=== PATIENT | female | born 1970 | race Two or more races ===

== ENCOUNTER 2024-11-06 22:12 | Emergency (ER) | payer OTHER ==
[~2024-11-06] VITALS: Ht 149.9 cm; Wt 68.3 kg
--- NOTE | 2024-11-07 00:01 | ED.PDOC ---
GI ASSESSMENT HPI Comments 54-year-old female came to ER due to abdominal pain. States she has been having abdominal pain for the past few hours, left-sided abdominal pain, 8/10 intensity, associated bouts of nausea and vomiting. Denies any change in bowel habits or fever. REVIEW OF SYSTEMS: General: No fever, no chills, or fatigue HEENT: No sore throat, no earache, no congestion, no neck pain. Cardiac: No chest pain. No palpitations. Lungs: No shortness of breath, no cough. GI: (+) nausea, (+) vomiting, no diarrhea, no constipation, (+) abdominal pain : No dysuria, frequency, or urgency. No hematuria. Musculoskeletal: No joint pain , no joint swelling, no extremity edema. Skin: No rash, no itching. Neuro: No headache, no dizziness, no weakness EXAM: General: Awake, alert and oriented. No acute distress. Skin: Skin in warm, dry and intact. Appropriate color for ethnicity. HEENT: The head is normocephalic and atraumatic. Conjunctivae are clear without exudates or hemorrhage. Sclera is non-icteric. EOM are intact. No signs of nystagmus. Eyelids are normal in appearance without swelling or lesions. Oral mucosa is pink and moist Neck: The neck is supple with normal range of motion. No JVD. Cardiac: Heart rate and rhythm are normal. No murmurs, gallops, or rubs are auscultated. Respiratory: No signs of respiratory distress. Lung sounds are clear in all lobes bilaterally without rales, rhonchi, or wheezes. Abdominal: Abdomen is soft, left flank, left upper quadrant tenderness without distention. Bowel sounds are present and normoactive in all four quadrants. Extremities: Upper and lower extremities are atraumatic in appearance without deformity or edema. Neurological: The patient is awake, alert and oriented to person, place, and time with normal speech. Speech is clear. There is no facial asymmetry. Normal gait Psychiatric: Appropriate mood and affect. 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 Was a procedure done?: No GI differential Dx Differential Diagnosis: Constipation, Diverticular disease, Gastritis/PUD, Gastroenteritis, Hernia, Pancreatitis, UTI, Urolithiasis X-Ray, Labs, Meds, VS Vital Signs Date Time Temp Pulse Resp B/P (MAP) Pulse Ox O2 Delivery O2 Flow Rate FiO2 11/07/24 01:33 97.8 64 16 169/73 (105) 99 97.8 11/06/24 22:12 97.9 82 18 156/77 99 97.9 Lab Test 11/07/24 00:20 11/06/24 23:22 Range/Units White Blood Count 12.2 H 4.4-10.8 10^3/uL Red Blood Count 5.19 4.0-5.20 10^6/uL Hemoglobin 14.5 12.2-16.2 g/dL Hematocrit 43.1 36.0-46.0 % Mean Corpuscular Volume 83.0 80.0-100.0 fL Mean Corpuscular Hemoglobin 27.9 L 28.0-32.0 pg Mean Corpuscular Hemoglobin Concent 33.6 32.0-36.0 g/dL Red Cell Distribution Width 13.2 11.8-14.3 % Platelet Count 317 140-450 10^3/uL Mean Platelet Volume 8.7 6.9-10.8 fL Neutrophils (%) (Auto) 37.0-80.0 % Lymphocytes (%) (Auto) 10.0-50.0 % Monocytes (%) (Auto) 0.0-12.0 % Basophils (%) (Auto) 0.0-2.0 % Neutrophils # (Auto) 1.6-8.6 10 ^3/uL Lymphocytes # (Auto) 0.4-5.4 10 ^3/uL Monocytes # (Auto) 0-1.3 10 ^3/uL Differential Total Cells Counted 100.0 100 Neutrophils % (Manual) 36 L 37.0-80.0 Band Neutrophils % (Manual) 0 Lymphocytes % (Manual) 41 10.0-50.0 Monocytes % (Manual) 5 0-12 Eosinophils % (Manual) 18 H 0-7 Basophils % (Manual) 0 0.0-2.0 Metamyelocytes % (manual) 0 Myelocytes % (Manual) 0 Promyelocytes % (Manual) 0 Blast Cells % (Manual) 0 Reactive Lymphocytes 0 Platelet Estimate Adequate Sodium Level 136 136-145 mmol/L Potassium Level 4.6 3.5-5.1 mmol/L Chloride Level 101 98-107 mmol/L Carbon Dioxide Level 27 20-31 mmol/L Anion Gap 8 5-15 Blood Urea Nitrogen 17 9-23 mg/dL Creatinine 1.30 H 0.550-1.02 mg/dL Glomerular Filtration Rate Calc 49 >90 mL/min BUN/Creatinine Ratio 13.1 10.0-20.0 Serum Glucose 353 H 74-106 mg/dL Calcium Level 9.7 8.7-10.4 mg/dL Urine Color Light-yellow Yellow Urine Clarity Clear Clear Urine pH 6.5 5.0-9.0 Urine Specific [place] 1.016 1.001-1.035 Urine Protein 2+ H Negative Urine Ketones Negative Negative Urine Blood Negative Negative /uL Urine Nitrite Negative Negative Urine Bilirubin Negative Negative Urine Urobilinogen Normal Negative mg/dL Urine Leukocyte Esterase Negative Negative /uL Urine RBC None seen 0 - 4 /hpf Urine Microscopic WBC 1 0-5 /HPF Urine Squamous Epithelial Cells None seen <5 /hpf Urine Bacteria None seen None Seen /hpf Urine Glucose 4+ H Normal mg/dL Current Medications Medications (Trade) Dose Ordered Sig/Josué Route Start Time Stop Time Status Last Admin Ketorolac Tromethamine (Toradol Injection) 30 mg ONCE ONCE IM 11/07/24 00:15 11/07/24 00:16 DC 11/07/24 01:06 Tramadol HCl (Ultram) 50 mg ONCE ONCE PO 11/07/24 00:15 11/07/24 00:16 DC 11/07/24 01:07 Acetaminophen (Tylenol Tablet) 650 mg ONCE ONCE PO 11/07/24 00:15 11/07/24 00:16 DC 11/07/24 01:05 Exam: CT CT AB PEL WO CON-NO ORAL OR IV History: Left flank pain Comparison Study: None Technique: Multidetector spiral CT of the abdomen was performed from lung bases to pubic symphysis. Imaging was performed without IV contrast. Axial, coronal and sagittal multiplanar reformats were obtained from the axial data set by the technologist. Radiation Dose : 1. Abdomen/Pelvis: CTDIvol 7.47 mGy, DLP 442.6 mGy*cm. Findings: Evaluation of solid organs is limited due to lack of intravenous contrast use. Lung Bases: No acute or significant lung base finding. Normal heart size. No pleural or pericardial effusion. Liver: The liver is normal in size. No focal lesions. Gallbladder and Biliary Tree: Unremarkable Spleen: Unremarkable Pancreas: The pancreas is grossly normal in appearance. Adrenal Glands: Unremarkable Kidneys: Kidneys are grossly normal without calculi or hydronephrosis. Bladder: Grossly unremarkable for degree of distention. Bowel: The stomach is grossly normal in appearance. Retained colorectal stool. Small bowel and colon are otherwise normal in caliber and distribution. The appendix is normal. Ascites: Absent Lymphadenopathy: No mesenteric, retroperitoneal or periportal lymphadenopathy. Abdominal Wall and Mesentery: Unremarkable. Vasculature: The visualized abdominal aorta is normal in size and caliber. Evaluation of abdominal and pelvic vessels is limited due to lack of intravenous contrast. Pelvic Organs: Unremarkable Musculoskeletal: No aggressive focal bony lesions, acute fractures or dis location. IMPRESSION: 1. No acute abdominal or pelvic findings. 2. Retained colorectal stool. Radiation optimization: All CT scans at this facility use at least one of these dose optimization techniques: automated exposure control mA and/or kV adju stment per patient size (includes targeted exams where dose is matched to clinical indication) or iterative reconstruction. Time of 1ST Reevaluation: 23:57 Reevaluation 1ST: Unchanged Patient Education/Counseling: Need For Follow Up Family Education/Counseling: No Family Present SEPSIS Sepsis Screen Date sepsis recognized/suspect: Nov 06, 2024 Time Sepsis recognized/suspect: 2211 Recent Procedure: No On Antibiotic Therapy: No Respiratory Rate >20: No Heart Rate >90: No Temp<36 C (96.8 F) or >38.3 C: No SBP <90 or MAP <65 mmHG: No New Acute Mental Status Change: No Is the patient on CPAP, BIPAP,: No Physician Orders Ct Ab Pel Wo Con-No Oral Or Iv (11/07/24 00:14) Vital Signs Date Time Temp Pulse Resp B/P (MAP) Pulse Ox O2 Delivery O2 Flow Rate FiO2 11/07/24 01:33 97.8 64 16 169/73 (105) 99 97.8 11/06/24 22:12 97.9 82 18 156/77 99 97.9 Laboratory Tests Test 11/07/24 00:20 White Blood Count 12.2 10^3/uL (4.4-10.8) H Medications Medications Dose Ordered Sig/Josué Route Start Time Stop Time Status Last Admin Dose Admin Acetaminophen 650 mg ONCE ONCE PO 11/07/24 00:15 11/07/24 00:16 DC 11/07/24 01:05 Ketorolac Tromethamine 30 mg ONCE ONCE IM 11/07/24 00:15 11/07/24 00:16 DC 11/07/24 01:06 Tramadol HCl 50 mg ONCE ONCE PO 11/07/24 00:15 11/07/24 00:16 DC 11/07/24 01:07 Departure 1 Departure Time of Disposition: 01:27 Impression: Primary Impression: Abdominal pain Additional Impressions: Constipation Hyperglycemia Disposition: 01 HOME / SELF CARE / HOMELESS Condition: Stable Additional Instructions: INSTRUCCIONES DE KIM DE Urgencias Instrucciones: Yancy atentamente todas las instrucciones proporcionadas en maru paquete. Hoy le diagnosticaron estreimiento, dolor abdominal y niveles altos de azcar en la carlos. Es muy importante que tome vincenzo medicamentos para la diabetes segn lo recetado. Empiece a joanie [employer] para el estreimiento y asegrese de beber michael agua Aunque le hayan dado el kim del Departamento de Emergencias, esto no significa que tenga un "certificado de buena riley". Hoy no se bosch realizado ningn diagnstico definitivo para vincenzo sntomas. Es posible que ests en proceso de desarrollar luc enfermedad grave. Es por eso que debe regresar al servicio de urgencias sin falta si presenta algn sntoma nuevo o que empeora (especialmente si vincenzo sntomas incluyen dolor en el pecho, dificultad para respirar, dolor abdominal, fiebre, dolor de bobbi, confusin, dificultad para angie o caminar). [place] es muy importante que consulte a un mdico de atencin primaria dentro de los prximos 3 a 5 rosales para realizar un seguimiento. Si no puede conseguir luc luli, regrese al servicio de urgencias para luc nueva evaluacin. Dolor abdominal: instrucciones de cuidado Imagen de los cuatro cuadrantes del abdomen. Descripcin general El dolor abdominal tiene muchas causas posibles. Algunas no son graves y mejoran por s solas en unos rosales. Otras requieren ms pruebas y tratamiento. Si el dolor contina o empeora, es necesario volver a examinarlo y es posible que necesite ms pruebas para averiguar qu es lo que est mal. Es posible que n ecesite luc ciruga para corregir el problema. No ignore los sntomas nuevos, asmita fiebre, nuseas y vmitos, problemas para or inar, dolor que empeora y mareos. Estos pueden ser signos de un problema ms grave. Si no mejora, es posible que necesite ms pruebas o tratamiento. El mdico lo bosch examinado cuidadosamente, katalina pueden surgir problemas ms adelante. Si nota algn problema o sntomas nuevos, busque tratamiento mdico de inmediato . El seguimiento mdico es luc parte fundamental de pimentel tratamiento y pimentel seguridad. Asegrese de programar y acudir a todas las citas, y llame a pimentel mdico si tiene problemas. Kurpa es luc buena idea saber los resultados de vincenzo pruebas y llevar luc lista de los medicamentos que juvencio. Electromechanical Equipment Assembler puedes cuidarte en casa? Descansa hasta que te sientas mejor. Para prevenir la deshidratacin, deysi abundante lquido. Elija agua y otros lquidos trudy hasta que se sienta mejor. Si tiene luc enfermedad renal, cardaca o heptica y debe limitar los lquidos, consulte con pimentel mdico antes de aumentar la cantidad de lquidos que silvia. Cuando sientas ganas de comer, empieza con pequeas cantidades. No tomes alcoho l, cafena ni alimentos picantes, calientes o con alto contenido de grasa bandar shanna o dos rosales. Evite los medicamentos antiinflamatorios asmita la aspirina, el ibuprofeno (Advil, Motrin) y el naproxeno (Aleve). Pueden causar malestar estomacal. Hable con pimentel mdico si juvencio aspirina a diario por otro problema de riley. Cundo debes pedir ayuda? Llame al 911 en cualquier momento en que crea que puede necesitar atencin de emergencia. Por ejemplo, llame si: Te desmayaste (perdiste el conocimiento). Tiene heces de color marrn o con michael carlos. Vomitas carlos o lo que parecen posos de caf. Tienes un dolor intenso en el vientre. Llame a pimentel mdico ahora o busque atencin mdica inmediata si: El dolor empeora, especialmente si se concentra en luc yumiko determinada del abdomen. Tiene fiebre nueva o ms kim. Las heces son negras y parecen alquitrn, o tienen vetas de carlos. Tienes sangrado vaginal inesperado. Tiene sntomas de luc infeccin del tracto urinario. Estos pueden incluir: Dolor al orinar. Orinar con ms frecuencia de lo habitual. Carlos en la orina. Se siente mareado o aturdido, o siente que se puede desmayar. Preste atencin a los cambios en pimentel riley y asegrese de comunicarse con pimentel mdico si: No ests mejorando asmita esperabas. Crditos para el dolor abdominal: instrucciones de cuidado Actualizado al: 2023 Autor: Personal de [facility], [facility] Diabetes: Electromechanical Equipment Assembler prevenir emergencias por niveles altos de azcar en carlos El nivel alto de azcar en carlos se produce cuando el nivel de azcar (glucosa) en la carlos supera el rango objetivo. Puede ocurrir si: Olvida luc dosis de pimentel medicamento para la diabetes tipo 2 o luc dosis requerida de insulina. Comes ms de lo esperado. Haces menos ejercicio del que ests acostumbrado a hacer. Juvencio medicamentos que elevan el nivel de azcar en la carlos asmita efecto secundario. Algunos ejemplos incluyen antiinflamatorios (corticosteroides) y descongestionantes. Ests estresado o enfermo. Ests embarazada. Si usa insulina, es posible que algunas maanas tenga un nivel de azcar muy alto, incluso si estaba bajo al acostarse. Consulte con pimentel mdico si esto sucede. Es posible que deba medirse el azcar por la noche para averiguar por qu tiene niveles altos por la maana. Electromechanical Equipment Assembler prevenir emergencias por niveles altos de azcar en carlos? La hiperglucemia suele aparecer lentamente, en cuestin de horas o rosales. Use esta informacin para ayudar a prevenir luc emergencia. Conozca los sntomas del nivel alto de azcar en la carlos. Los sntomas de un nivel alto de azcar en carlos incluyen sentir michael sed, sentirse muy cansado y orinar ms de lo habitual. Coloque luc lista de los sntomas en un lugar visible, asmita la cassandra del refrigerador. Aada cualquier sntoma que haya notado y que no est en la lista. Revise pimentel nivel de azcar en carlos con frecuencia. [place] es especialmente importante si est enfermo o no sigue pimentel rutina habitual. Medirse el azcar en carlos en casa le ayudar a saber cundo est kim, incluso si no nota sntomas. Lleve un registro de vincenzo niveles altos de azcar en la carlos. Anote vincenzo sntomas y machinist general los trat. Lleve el registro a pimentel consulta mdica. Llame a pimentel mdico si suele tener niveles altos de azcar en la carlos o si pimentel nivel de azcar en la carlos suele estar por encima de pimentel rango ideal. Es posible que sea necesario ajustar o cambiar pimentel medicamento. Tenga un plan para lidiar con el alto nivel de azcar en carlos. Pimentel mdico le indicar vincenzo niveles de azcar en carlos y le recomendar mtodos para tratarlos. Siga estas instrucciones cuando tenga niveles altos de azcar en carlos. Asegrese de que otras personas (en el trabajo y en casa) conozcan los sntomas de la hiperglucemia. Enseles qu hacer en yumiko de emergencia. Trate las infecciones a tiempo. Las infecciones que no se tratan pueden aumentar el riesgo de sufrir luc emergencia por niveles altos de azcar en la carlos. [place] vincenzo medicamentos segn lo prescrito. No omita ni cambie la dosis de vincenzo medicamentos para la diabetes ni de insulina sin consultar ely con pimentel mdi co. Beber mucho lquido. Lo mejor es el agua y las bebidas sin azcar. Evite los refrescos, los jugos de fruta y otras bebidas con michael azcar. Evite las bebidas con cafena y el alcohol. Si vincenzo niveles de azcar en carlos estn por encima del rango ideal, deysi ms lquidos. [place] ayuda a reponer los lquidos perdidos a travs de la orina. Llevar identificacin mdica en todo momento. Llevar luc pulsera de alerta mdica., Abre el dilogoo el collar es muy importante en yumiko de que ests demasiado enfermo para hablar por ti mismo. e-Prescriptions Polyethylene Glycol 3350 (Miralax) 17 Gm Pow 17 GM PO DAILY for 7 Days, #7 POW Prov: SADAF SOLOMON MD 11/07/24 Comments MDM: 54-year-old female presented with abdominal pain. No peritoneal signs on abdominal exam. No evidence of acute abdomen at this time. patient is well maday earing. Labs show no leukocytosis Imaging shows large stool burden. Patient is afebrile. Patient is not hypotensive. Low suspicion for acute hepatobiliary disease (including acute cholecystitis, acute pancreatitis, PUD (including perforation), acute infectious process (pneumonia, hepatitis, pyelonephritis), acute appendicitis, vascular catastrophe, bowel obstructions, viscous perf oration. Presentation not consistent with other acute, emergent causes of abdominal pain at this time. - I reviewed the following notes from the pt's past medical encounters: N/A The following tests were ordered, and results were reviewed by me: (See diagnostic results section) The following test were independently interpreted by me: N/A Additional information was gathered from interviewing the following independent historians: N/A I reviewed and agreed with the following test results read by other providers: N/A I discussed treatments and results with patient Decision regarding hospitalization or escalation of hospital level of care: Ri sks and benefits of admission for further treatment of patient's condition was considered however due to patient's stable condition patient will be discharged to follow up closely or return to care for worsening of condition or inability to follow up. Critical Care Note Critical Care Time?: No Stability Stability form required: No Heart Score Heart Score: Heart Score Response (Comments) Value History N/A 0 EKG N/A 0 Age N/A 0 Risk Factors N/A 0 Troponin N/A 0 Total 0 I personally scribed for SADAF SOLOMON MD ([email or web address]) on 11/07/24 at 00:00. Electronically submitted by Derrick Cope ([email or web address]). I personally scribed for SADAF SOLOMON MD ([email or web address]) on 11/07/24 at 01:21. Electronically submitted by Derrick Cope ([email or web address]). SADAF SOLOMON MD Nov 07, 2024 00:00
[2024-11-07 00:04] LABS: Urine Protein, UAD 2+ (Negative)
[2024-11-07 00:39] LABS: Hematocrit 43.1 % (36.0-46.0); Hemoglobin 14.5 g/dL (12.2-16.2); Mean Corpuscular Hemoglobin 27.9 pg (28.0-32.0); Mean Corpuscular Volume 83.0 fL (80.0-100.0)
[2024-11-07 00:58] LABS: Anion Gap 8 (5-15); Carbon Dioxide 27 mmol/L (20-31); Chloride 101 mmol/L (98-107); Potassium 4.6 mmol/L (3.5-5.1); Sodium 136 mmol/L (136-145)
[2024-11-07 00:59] LABS: Calcium 9.7 mg/dL (8.7-10.4)
[2024-11-07 01:04] LABS: BUN/Creatinine Ratio 13.1 (10.0-20.0); Blood Urea Nitrogen 17 mg/dL (9-23)
[2024-11-07] MEDS: ACETAMINOPHEN 325 MG TAB PO ONE (01:05)
[2024-11-07] MEDS: KETOROLAC TROMETH 30 MG/ML 1ML VIAL IM ONE (01:06)
--- NOTE | 2024-11-07 01:10 | DVH ---
Exam: CT CT AB PEL WO CON-NO ORAL OR IV History: Left flank pain Comparison Study: None Technique: Multidetector spiral CT of the abdomen was performed from lung bases to pubic symphysis. I maging was performed without IV contrast. Axial, coronal and sagittal multiplanar reformats were obta ined from the axial data set by the technologist. Radiation Dose : 1. Abdomen/Pelvis: CTDIvol 7.47 mGy, DLP 442.6 mGy*cm. Findings: Evaluation of solid organs is limited due to lack of intravenous contrast use. Lung Bases: No acute or significant lung base finding. Normal heart size. No pleural or pericardial effusion. Liver: The liver is normal in size. No focal lesions. Gallbladder and Biliary Tree: Unremarkable Spleen: Unremarkable Pancreas: The pancreas is grossly normal in appearance. Adrenal Glands: Unremarkable Kidneys: Kidneys are grossly normal without calculi or hydronephrosis. Bladder: Grossly unremarkable for degree of distention. Bowel: The stomach is grossly normal in appearance. Retained colorectal stool. Small bowel and colon are otherwise normal in caliber and distribution. The appendix is normal. Ascites: Absent Lymphadenopathy: No mesenteric, retroperitoneal or periportal lymphadenopathy. Abdominal Wall and Mesentery: Unremarkable. Vasculature: The visualized abdominal aorta is normal in size and caliber. Evaluation of abdominal a nd pelvic vessels is limited due to lack of intravenous contrast. Pelvic Organs: Unremarkable Musculoskeletal: No aggressive focal bony lesions, acute fractures or dislocation. IMPRESSION: 1. No acute abdominal or pelvic findings. 2. Retained colorectal stool. Radiation optimization: All CT scans at this facility use at least one of these dose optimization simón hniques: automated exposure control mA and/or kV adjustment per patient size (includes targeted exam s where dose is matched to clinical indication) or iterative reconstruction.
[2024-11-07 01:12] LABS: Glucose 353 mg/dL (74-106)
[2024-11-07 01:28] LABS: Total Cells Counted 100.0 (100)
[2024-11-07] MEDS ORDERED: POLY335015 PO (01:31)
[2024-11-07 01:33] VITALS: BP 169/73; PULSE 64; RESP 16; TEMP 97.8; O2SAT 99
[2024-11-07] MEDS: SODIUM CHLORIDE 0.9% 1,000 ML IV ONE (01:42)
== END 2024-11-07 02:06 | disposition home or self-care (01) ==
LOC: ER 22:12
DX: R10.9 Unspecified abdominal pain (principal); K59.00 Constipation, unspecified; E11.65 Type 2 diabetes mellitus with hyperglycemia; I10 Essential (primary) hypertension
CPT/HCPCS: 36415; 74176; 80048; 81001; 85007; 85027; 96372; 99285; J1885